=== PATIENT | male | born 1995 | race Caucasian/White ===

== ENCOUNTER 2020-03-15 17:10 | Emergency (ER) | payer MEDICAID ==
[~2020-03-15] VITALS: Ht 180.3 cm; Wt 80.0 kg
--- NOTE | 2020-03-15 17:24 | PHYS DOC ---
General Adult EDM: Chief Complaint: LACERATION/AVULSION HPI: HPI: 25-year-old male presents with laceration of the abdomen. The patient does have a new utility blade out and accidentally cut his abdomen. He had immediate bleeding. He was very freaked out and came to the emergency room. He tells me that he was not attached. This was an accident and self-induced. His tetanus is not up-to-date. He denies any other injuries. He has some abrasions on his right elbow from a fall yesterday. Review of Systems: Review of Systems: Constitutional: Denies fever or chills Eyes: Denies change in visual acuity HENT: Denies nasal congestion or sore throat Respiratory: Denies cough or shortness of breath Cardiovascular: Denies chest pain or edema GI: Denies abdominal pain, nausea, vomiting, bloody stools or diarrhea : Denies dysuria Musculoskeletal: Denies back pain or joint pain Integument: 1.5 cm laceration of the abdominal wall Neurologic: Denies headache, focal weakness or sensory changes Endocrine: Denies polyuria or polydipsia Lymphatic: Denies swollen glands Psychiatric: Denies depression or anxiety Heart Score: Risk Factors: Risk Factors: DM, Current or recent (<one month) smoker, HTN, HLP, family history of CAD, obesity. Risk Scores: Score 0 - 3: 2.5% MACE over next 6 weeks - Discharge Home Score 4 - 6: 20.3% MACE over next 6 weeks - Admit for Clinical Observation Score 7 - 10: 72.7% MACE over next 6 weeks - Early Invasive Strategies Physical Exam: PE: Constitutional: Well developed, well nourished, no acute distress, non-toxic appearance. [] HENT: Normocephalic, atraumatic, bilateral external ears normal, oropharynx moist, no oral exudates, nose normal. [] Eyes: PERRLA, EOMI, conjunctiva normal, no discharge. [] Neck: Normal range of motion, no tenderness, supple, no stridor. [] Cardiovascular:Heart rate regular rhythm, no murmur [] Lungs & Thorax: Bilateral breath sounds clear to auscultation [] Abdomen: Bowel sounds normal, soft, no tenderness, no masses, no pulsatile masses. [] Skin: 1.5 cm linear laceration of the superficial abdominal wall [] Back: No tenderness, no CVA tenderness. [] Extremities: No tenderness, no cyanosis, no clubbing, ROM intact, no edema. [] Neurologic: Alert and oriented X 3, normal motor function, normal sensory function, no focal deficits noted. [] Psychologic: Affect normal, judgement normal, mood anxious. [] EKG: EKG: [] Radiology/Procedures: Radiology/Procedures: [] Course & Med Decision Making: Course & Med Decision Making Pertinent Labs and Imaging studies reviewed. (See chart for details) The patient has 1.5 cm laceration of the superficial abdominal wall. I probed the wound and it does not go below the subcutaneous fat. I repaired with sutures. See note below for details. I will discharge patient on a short course of Etta 5/325 for his discomfort his tetanus was updated in the ER. He is stable for discharge at this time. [] Dragon Disclaimer: Dragon Disclaimer: This electronic medical record was generated, in whole or in part, using a voice recognition dictation system. Laceration Repair Lac Repair Indication: [] 1.5 cm linear laceration of the abdominal wall Procedure: Verbal consent was obtained from the patient for suture repair of his superficial abdominal laceration. I anesthetized the wound with 3 cc of 2% lidocaine with epinephrine. Once good anesthesia was achieved, I irrigated the wound with saline under pressure. There was no foreign bodies found. I repaired the wound with 4 3-0 Ethilon sutures in interrupted fashion. There was good skin approximation. Bleeding was controlled. A clean nonadherent dressing was applied. Total repaired wound length: 1.5 cm Other Items: [None The patient tolerated the procedure well Complications: None Departure Departure: Impression: Primary Impression: Laceration of abdominal wall Qualified Codes: S31.119A - Laceration without foreign body of abdominal wall, unspecified quadrant without penetration into peritoneal cavity, initial encounter Disposition: HOME/RESIDENCE PRIOR TO ADM Condition: STABLE Patient Instructions: Sutured Wound Care, [id number] Scripts Hydrocodone Bit/Acetaminophen (NORCO 5-325 TABLET) 1 Each Tablet 1 TAB PO PRN Q6HRS PRN for PAIN, #10 TAB 0 Refills Prov: CLIFF ALANIS DO 03/15/20 Justification of Admission: Justification of Admission: Justification of Admission Dx: N/A CLIFF ALANIS DO Mar 15, 2020 17:24
[2020-03-15 17:29] VITALS: BP 147/84
[2020-03-15] MEDS ORDERED: HYDR-3165 PO (18:08)
[2020-03-15] MEDS ORDERED: DIPH,PERTUSS(ACELL),TET VAC/PF 0.5 ML SYRINGE. VAX IM ONE (18:45)
== END 2020-03-15 18:37 | disposition home or self-care (01) ==
LOC: ER 17:10
DX: S31.119A Laceration without foreign body of abdominal wall, unspecified quadrant without penetration into peritoneal cavity, initial encounter (principal); S50.311A Abrasion of right elbow, initial encounter; W26.8XXA Contact with other sharp object(s), not elsewhere classified, initial encounter; Y93.89 Activity, other specified; Y92.89 Other specified places as the place of occurrence of the external cause; Y99.8 Other external cause status
CPT/HCPCS: 12001; 99283